=== PATIENT | female | born 1965 | race Caucasian/White ===

== ENCOUNTER 2019-12-21 18:22 | Emergency (ER) | payer OTHER ==
[2019-12-21 18:45] VITALS: BP 155/96; BMI 27.8
[2019-12-21] MEDS ORDERED: hydrOXYzine PAMOATE 50 MG CAPSULE (FP) PO ONE (19:35)
[2019-12-21] MEDS ORDERED: hydrOXYzine PAMOATE 50 MG CAPSULE (FP) ONE (19:37)
--- NOTE | 2019-12-21 19:41 | PDOC ---
History of Present Illness - General Chief Complaint: Sore Throat Stated Complaint: SOB/SORE THROAT Time Seen by Provider: 12/21/19 19:07 History Source: Patient Exam Limitations: No Limitations - History of Present Illness Initial Comments: 12/21/19 19:37 HISTORY OF PRESENT ILLNESS: 54-year-old woman with past medical history of anxiety, major depressive disorder post traumatic stress disorder who presents emergency department for evaluation of throat irritation after smelling beltre poison. Patient reports she smelled the beltre poison felt it was on her hands and instantly paralleled her hands but began to feel some sort of irritation in her throat after eating. Patient is concerned that she has ingested a toxic amount of beltre poison. Patient reports she felt nauseous but has not vomited and feels that her breathing is a little bit heavier. She denies fevers, chills, shortness of breath, abdominal pain, vomiting. No recent travel or sick contacts. PAST MEDICAL HISTORY: See HPI SURGICAL HISTORY: Denies ALLERGIES: Codeine REVIEW OF SYSTEMS General/Constitutional: Denies fever or chills. Denies weakness, weight change. HEENT: See HPI Cardiovascular: Denies chest pain or shortness of breath. Respiratory: Denies cough, wheezing, or hemoptysis. Gastrointestinal: Denies nausea, vomiting, diarrhea or constipation. Denies rectal bleeding. Genitourinary: Denies dysuria, frequency, or change in urination. Musculoskeletal: Denies joint or muscle swelling or pain. Denies neck or back pain. Skin and breasts: Denies rash or easy bruising. Neurologic: Denies headache, vertigo, loss of consciousness, or loss of sensation. Psychiatric: Denies depression or anxiety. Endocrine: Denies increased thirst. Denies abnormal weight change. Hematologic/Lymphatic: Denies anemia, easy bleeding, or history of blood clots. Allergic/Immunologic: Denies hives or skin allergy. Denies latex allergy. PHYSICAL EXAM General Appearance: Well-appearing, appropriately dressed. No apparent distress, no intoxication. HEENT: EOMI, PERRLA, normal ENT inspection, normal voice, TMs normal, pharynx normal. No conjunctival pallor. No photophobia, scleral icterus. Neck: Supple. Trachea midline. No tenderness, rigidity, carotid bruit, stridor, lymphadenopathy, or thyromegaly. Respiratory/Chest: Lungs CTAB. No shortness of breath, chest tenderness, respiratory distress, accessory muscle use. No crackles, rales, rhonchi, stridor, wheezing, dullness Cardiovascular: RRR. S1, S2. No JVD, murmur, bradycardia, tachycardia. Vascular Pulses: Dorsalis-Pedis (R): 2+, Dorsalis-Pedis (L): 2+ Gastrointestinal/Abdominal: Normal bowel sounds. Abdomen soft, non-distended. No tenderness or rebound tenderness. No organomegaly, pulsatile mass, guarding, hernia, hepatomegaly, splenomegaly. Neurologic: sheet roller operator II-XII intact. Fully oriented, alert. Appropriate mood/affect. Motor strength 5/5. No appreciable EOM palsy, facial droop or sensory deficit. Past History - Medical History Allergies/Adverse Reactions: Allergies Allergy/AdvReac Type Severity Reaction Status Date / Time codeine Allergy Verified 12/21/19 18:40 Home Medications: Ambulatory Orders Clonazepam 0.125 mg PO DAILY PRN MDD anxiety 12/21/19 COPD: No - Reproductive History Is Patient Now?: No - Psycho-Social/Smoking History Smoking History: Never smoked - Substance Abuse Hx (Audit-C & DAST Scrn) How often the patient has a drink containing alcohol: Never Score: In Men: 4 or > Positive; In Women: 3 or > Positive: 0 Screen Result (Pos requires Nsg. Audit-10AR): Negative In the last yr the pt used illegal drug/Rx for NonMed reason: No Score: Yes response is considered Positive: 0 Screen Result (Positive result requires Nsg. DAST-10): Negative *Physical Exam - Vital Signs Last Vital Signs Temp Pulse Resp BP Pulse Ox 155/96 99 12/21/19 18:42 12/21/19 18:42 Medical Decision Making - Medical Decision Making 12/21/19 19:40 A/P: 54-year-old woman with encounter for concerned that she accidentally ingested beltre poison Physical exam is unremarkable Given patient's history this is likely an acute exacerbation of her anxiety. Hydroxyzine 50 mg orally now Reassess 12/21/19 20:22 Patient reports she has complete resolution of symptoms after receiving hydroxyzine. Patient has been instructed to follow-up with her psychiatrist for continued evaluation and potential change in dosage of her Zoloft or additional medication to help with breakthrough anxiety. I discussed the physical exam findings, ancillary test results and final diagnoses with the patient. I answered all of the patient's questions. The patient was satisfied with the care received and felt comfortable with the discharge plan and treatment plan. The patient will call their primary care physician within 24 hours to arrange follow-up and will return to the Emergency Department with any new, persistent or worsening symptoms. Portions of this note have been documented using voice recognition software. As a result, errors may occur in the apparel fashion designer process. Effort has been made to correct all grammatical and apparel fashion designer error, but some may have been missed which may produce sporadic inaccurate apparel fashion designer or nonsensical phrases. Discharge - Discharge Information Problems reviewed: Yes Clinical Impression/Diagnosis: Anxiety Condition: Stable Disposition: HOME - Admission No - Follow up/Referral Referrals: Vikas Claudio MD [Primary Care Provider] - - Patient Discharge Instructions Additional Instructions: It is important that you follow-up with your doctor for reevaluation of your medications and potential addition of medications for breakthrough treatment. Return to the emergency department for any new or worsening symptoms. Thank you very much for choosing us to provide your emergent healthcare needs. - Post Discharge Activity
== END 2019-12-21 20:30 | disposition home or self-care (01) ==
LOC: JERFT 18:22
DX: F41.9 Anxiety disorder, unspecified (principal)
CPT/HCPCS: 99283-25

== ENCOUNTER 2021-04-29 04:00 | Emergency (ER) | payer OTHER ==
[2021-04-29 06:22] LABS: BASO % 0.5 % (0-2.0); EOS % 2.1 % (0-4.5); HEMATOCRIT 41.9 % (32.4-45.2); MCH 29.2 pg (25.7-33.7); MCHC 33.4 g/dl (32.0-36.0); MEAN CELL VOLUME 87.5 fl (80-96); MONO % 9.5 % (3.8-10.2); NEUT % 68.9 % (42.8-82.8); PLATELET COUNT 186 10^3/uL (134-434); RBC 4.79 M/mm3 (3.60-5.2); RDW 13.5 % (11.6-15.6); WHITE BLOOD COUNT 5.1 K/mm3 (4.0-10.0)
[2021-04-29 06:26] LABS: CHLORIDE 108 mmol/L (98-107); SODIUM 142 mmol/L (136-145)
[2021-04-29 06:28] LABS: CALCIUM 9.2 mg/dL (8.5-10.1)
[2021-04-29 06:29] LABS: ALBUMIN 3.8 g/dl (3.4-5.0); ANION GAP 4 MMOL/L (8-16); BLOOD UREA NITROGEN 15.9 mg/dL (7-18); CO2 30 mmol/L (21-32); GLUCOSE,RANDOM 122 mg/dL (74-106)
[2021-04-29 06:31] LABS: INR 1.03 (0.83-1.09); PROTHROMBIN TIME (PATIENT) 11.5 SEC (9.7-13.0)
[2021-04-29 06:32] LABS: CREATININE 0.8 mg/dL (0.55-1.3); SGOT/AST 13 U/L (15-37); SGPT/ALT 14 U/L (13-61)
[2021-04-29 06:34] LABS: ACTIVATED PTT 26.4 SECONDS (25.2-36.5); BILIRUBIN,TOTAL 0.4 mg/dL (0.2-1)
[2021-04-29 06:35] LABS: ALK PHOS 84 U/L (45-117)
[2021-04-29 06:43] VITALS: TEMP 98.6
[2021-04-29 10:07] VITALS: BP 126/80; PULSE 87
== END 2021-04-29 10:08 | disposition home or self-care (01) ==
LOC: JER 04:00
DX: R07.9 Chest pain, unspecified (principal)
CPT/HCPCS: 36415; 71045-TC-FY; 80053; 82550; 84484; 85025; 85379; 85610; 85730; 93005; 93010; 99285-25; C9803; U0003; U0005

== ENCOUNTER 2021-07-26 15:44 | Observation (INO) | payer OTHER ==
[2021-07-26 15:57] VITALS: BMI 25.7
[2021-07-26] MEDS ORDERED: ASPIRIN 81 MG CHEWABLE TABLETS PO ONE (17:58)
[2021-07-26] MEDS ORDERED: ASPIRIN 81 MG CHEWABLE TABLETS ONE (18:01)
[2021-07-26] MEDS ORDERED: ACETAMINOPHEN 325 MG TABLET (FP) PO PRN (18:06)
[2021-07-26 19:03] LABS: BASO % 0.4 % (0-2.0); HEMATOCRIT 41.7 % (32.4-45.2); HEMOGLOBIN 13.9 GM/dL (10.7-15.3); LYMPH % 17.8 % (8-40); MCH 29.1 pg (25.7-33.7); MCHC 33.4 g/dl (32.0-36.0); MEAN CELL VOLUME 87.1 fl (80-96); MEAN PLT VOLUME 8.7 fl (7.5-11.1); MONO % 8.4 % (3.8-10.2); NEUT % 72.4 % (42.8-82.8); PLATELET COUNT 192 10^3/uL (134-434); RBC 4.79 M/mm3 (3.60-5.2); RDW 14.6 % (11.6-15.6); WHITE BLOOD COUNT 6.3 K/mm3 (4.0-10.0)
[2021-07-26 19:11] LABS: INR 3.97 (0.83-1.09); PROTHROMBIN TIME (PATIENT) 46.3 SEC (9.7-13.0)
[2021-07-26 19:14] LABS: ACTIVATED PTT 33.9 SECONDS (25.2-36.5)
[2021-07-26 19:26] LABS: BLOOD UREA NITROGEN 13.6 mg/dL (7-18)
[2021-07-26 19:29] LABS: CREATININE 0.8 mg/dL (0.55-1.3)
[2021-07-26 19:31] LABS: BILIRUBIN,TOTAL 0.4 mg/dL (0.2-1); TOT PROT 7.2 g/dl (6.4-8.2)
[2021-07-27 07:37] LABS: BASO % 0.7 % (0-2.0); EOS % 3.8 % (0-4.5); HEMATOCRIT 40.3 % (32.4-45.2); HEMOGLOBIN 13.4 GM/dL (10.7-15.3); LYMPH % 33.7 % (8-40); MCH 28.9 pg (25.7-33.7); MCHC 33.2 g/dl (32.0-36.0); MEAN CELL VOLUME 87.2 fl (80-96); MEAN PLT VOLUME 9.1 fl (7.5-11.1); MONO % 12.1 % (3.8-10.2); NEUT % 49.7 % (42.8-82.8); PLATELET COUNT 177 10^3/uL (134-434); RBC 4.62 M/mm3 (3.60-5.2); RDW 14.7 % (11.6-15.6)
[2021-07-27 07:58] LABS: ALBUMIN 3.5 g/dl (3.4-5.0); BLOOD UREA NITROGEN 13.2 mg/dL (7-18)
[2021-07-27 08:01] LABS: CREATININE 0.8 mg/dL (0.55-1.3)
[2021-07-27 08:02] LABS: BILIRUBIN,TOTAL 0.6 mg/dL (0.2-1); TOT PROT 6.4 g/dl (6.4-8.2)
[2021-07-27 14:05] VITALS: TEMP 98.6
[2021-07-27 17:03] VITALS: BP 105/57; PULSE 85
== END 2021-07-27 18:40 | disposition home or self-care (01) ==
LOC: JER 15:44 → JERBED 21:16
PROVIDERS: ADMIT Internal Medicine; ATTEND Internal Medicine
DX: R07.9 Chest pain, unspecified (principal); Z88.6 Allergy status to analgesic agent; F32.9 Major depressive disorder, single episode, unspecified; I10 Essential (primary) hypertension; Z20.822 Contact with and (suspected) exposure to COVID-19; R94.31 Abnormal electrocardiogram [ECG] [EKG]; G89.29 Other chronic pain; F41.9 Anxiety disorder, unspecified
CPT/HCPCS: 36415; 71045-TC-FY; 78452-TC; 80053; 80061; 84443; 84484; 85025; 85610; 85730; 93005; 93010; 93017; 93306-TC; 99285-25; A9502; C9803; G0378; U0003; U0005

== ENCOUNTER 2021-09-25 10:00 | Emergency (ER) | payer OTHER ==
[2021-09-25 10:20] VITALS: BP 117/84; PULSE 113; TEMP 98; BMI 24.0
[2021-09-25] MEDS ORDERED: FAMOTIDINE 20 MG/50 ML IVPB 20 MG/50 ML MG IVPB ONE (11:02)
[2021-09-25] MEDS ORDERED: FAMOTIDINE 10 MG/ML VIAL IVPB ONE (11:24)
[2021-09-25 11:50] LABS: BASO % 0.7 % (0-2.0); EOS % 1.3 % (0-4.5); HEMATOCRIT 46.6 % (32.4-45.2); HEMOGLOBIN 15.6 GM/dL (10.7-15.3); LYMPH % 19.8 % (8-40); MCH 29.1 pg (25.7-33.7); MCHC 33.4 g/dl (32.0-36.0); MEAN CELL VOLUME 87.2 fl (80-96); MEAN PLT VOLUME 8.7 fl (7.5-11.1); MONO % 8.7 % (3.8-10.2); NEUT % 69.5 % (42.8-82.8); PLATELET COUNT 192 10^3/uL (134-434); RBC 5.35 M/mm3 (3.60-5.2); RDW 13.7 % (11.6-15.6); WHITE BLOOD COUNT 4.5 K/mm3 (4.0-10.0)
[2021-09-25 12:10] LABS: BLOOD UREA NITROGEN 13.2 mg/dL (7-18)
[2021-09-25 12:14] LABS: CREATININE 0.8 mg/dL (0.55-1.3)
[2021-09-25 12:15] LABS: BILIRUBIN,TOTAL 0.8 mg/dL (0.2-1); TOT PROT 7.6 g/dl (6.4-8.2)
[2021-09-25 12:59] LABS: EPI CELLS 20 /uL (0-25.1); HYALINE CASTS 3 /uL (0-3.1); URINE APPEARANCE CLEAR; URINE BACTERIA 673 /uL (0-1359); URINE BILIRUBIN NEGATIVE (NEGATIVE); URINE COLOR YELLOW; URINE GLUCOSE (UA) NEGATIVE (NEGATIVE); URINE KETONE TRACE (NEGATIVE); URINE LEUK ESTERASE 3+ (NEGATIVE); URINE NITRITE NEGATIVE (NEGATIVE); URINE PROTEIN NEGATIVE (NEGATIVE); URINE UROBILINOGEN 0.2 mg/dL (0.2-1.0); URINE WBC 143 /uL (0-25.8)
[2021-09-25 13:44] LABS: URINE RBC 27.4 /uL (0-23.9)
== END 2021-09-25 14:40 | disposition home or self-care (01) ==
LOC: JER 10:00
PROC: 3E033GC Introduction of Other Therapeutic Substance into Peripheral Vein, Percutaneous Approach (ICD-10-PCS; principal; 2021-09-25)
DX: R07.9 Chest pain, unspecified (principal)
CPT/HCPCS: 36415; 71046-TC-FY; 80053; 81003; 83690; 84484; 85025; 85379; 93005; 93010; 96372; 99285-25

== ENCOUNTER 2021-09-29 01:42 | Emergency (ER) | payer OTHER ==
[2021-09-29 02:29] VITALS: BMI 24.0
[2021-09-29] MEDS ORDERED: SODIUM CHLORIDE 0.9% 500 ML INFUS.BAG IV ONE (03:15)
[2021-09-29] MEDS ORDERED: CEPHALEXIN MONOHYDRATE 500 MG CAPSULE (UD) PO ONE (03:15)
[2021-09-29] MEDS ORDERED: FAMOTIDINE 20 MG/50 ML IVPB 20 MG/50 ML MG IVPB ONE (03:15)
[2021-09-29] MEDS ORDERED: ACETAMINOPHEN 500 MG TABLET (FP) PO ONE (03:15)
[2021-09-29] MEDS ORDERED: MAG HYDROX/AL HYDROX/SIMETH 30 ML UNIT-DOSE CUP PO ONE (03:15)
[2021-09-29] MEDS ORDERED: CEPHALEXIN MONOHYDRATE 500 MG CAPSULE (UD) ONE (03:35)
[2021-09-29] MEDS ORDERED: ACETAMINOPHEN 325 MG TABLET (FP) ONE (03:35)
[2021-09-29] MEDS ORDERED: MAG HYDROX/AL HYDROX/SIMETH 30 ML UNIT-DOSE CUP ONE ×2 (03:36→03:51)
[2021-09-29] MEDS ORDERED: ACETAMINOPHEN 1000 MG/100 ML BAG IVPB ONE (03:47)
[2021-09-29] MEDS ORDERED: CEFTRIAXONE 1 GM in DEXTROSE 5%-WATER - 100 ML IVPB ONE (03:47)
[2021-09-29] MEDS ORDERED: CEFTRIAXONE 1 GM/50 ML BAG ONE (03:49)
[2021-09-29] MEDS ORDERED: ACETAMINOPHEN INJECTION 100 ML IVPB ONE (03:49)
[2021-09-29 04:25] LABS: BASO % 0.6 % (0-2.0); HEMOGLOBIN 14.1 GM/dL (10.7-15.3); LYMPH % 16.2 % (8-40); MCHC 33.6 g/dl (32.0-36.0); MEAN CELL VOLUME 86.5 fl (80-96); MEAN PLT VOLUME 9.1 fl (7.5-11.1); MONO % 10.1 % (3.8-10.2); NEUT % 71.1 % (42.8-82.8); PLATELET COUNT 189 10^3/uL (134-434); RBC 4.85 M/mm3 (3.60-5.2); RDW 13.9 % (11.6-15.6); WHITE BLOOD COUNT 6.3 K/mm3 (4.0-10.0)
[2021-09-29 04:46] LABS: BLOOD UREA NITROGEN 17.4 mg/dL (7-18); CALCIUM 9.1 mg/dL (8.5-10.1)
[2021-09-29 04:48] LABS: ALBUMIN 3.7 g/dl (3.4-5.0)
[2021-09-29 04:49] LABS: CREATININE 0.9 mg/dL (0.55-1.3)
[2021-09-29 04:51] LABS: BILIRUBIN,TOTAL 0.3 mg/dL (0.2-1); TOT PROT 6.8 g/dl (6.4-8.2)
[2021-09-29 07:01] VITALS: BP 129/76; PULSE 83; TEMP 98.6
== END 2021-09-29 07:01 | disposition home or self-care (01) ==
LOC: JER 01:42
PROC: 3E033NZ Introduction of Analgesics, Hypnotics, Sedatives into Peripheral Vein, Percutaneous Approach (ICD-10-PCS; principal; 2021-09-29)
PROC: 3E03329 Introduction of Other Anti-infective into Peripheral Vein, Percutaneous Approach (ICD-10-PCS; 2021-09-29)
PROC: 3E033GC Introduction of Other Therapeutic Substance into Peripheral Vein, Percutaneous Approach (ICD-10-PCS; 2021-09-29)
DX: R00.2 Palpitations (principal); N30.00 Acute cystitis without hematuria
CPT/HCPCS: 36415; 71046-TC-FY; 80053; 83690; 84443; 84484; 85025; 93005; 93010; 96365; 96367; 96375; 99285-25

== ENCOUNTER 2021-10-25 18:54 | Emergency (ER) | payer OTHER ==
[2021-10-25 19:06] VITALS: BP 146/83; PULSE 97; TEMP 98; BMI 24.0
[2021-10-25] MEDS ORDERED: SODIUM PHOSPHATE/NA BIPHOS 133 ML ENEMA PR ONE (23:25)
[2021-10-25] MEDS ORDERED: MAGNESIUM CITRATE 300 ML BOTTLE PO ONE (23:32)
[2021-10-25] MEDS ORDERED: MAGNESIUM CITRATE 300 ML BOTTLE ONE (23:40)
== END 2021-10-26 01:03 | disposition home or self-care (01) ==
LOC: JER 18:54
DX: K59.00 Constipation, unspecified (principal)
CPT/HCPCS: 74019-TC-FY; 99283-25

== ENCOUNTER 2021-11-14 22:37 | Emergency (ER) | payer OTHER ==
[2021-11-14 23:14] VITALS: BP 148/93; PULSE 90; TEMP 97.9; BMI 24.0
[2021-11-15 00:38] LABS: EPI CELLS 25 /uL (0-25.1); HYALINE CASTS 1 /uL (0-3.1); URINE APPEARANCE CLEAR; URINE BACTERIA 123 /uL (0-1359); URINE BILIRUBIN NEGATIVE (NEGATIVE); URINE COLOR YELLOW; URINE GLUCOSE (UA) NEGATIVE (NEGATIVE); URINE KETONE 1+ (NEGATIVE); URINE LEUK ESTERASE 2+ (NEGATIVE); URINE NITRITE NEGATIVE (NEGATIVE); URINE PROTEIN NEGATIVE (NEGATIVE); URINE RBC 20 /uL (0-23.9); URINE UROBILINOGEN 0.2 mg/dL (0.2-1.0); URINE WBC 93 /uL (0-25.8)
[2021-11-15] MEDS ORDERED: CEPHALEXIN MONOHYDRATE 500 MG CAPSULE (UD) PO ONE (01:17)
[2021-11-15] MEDS ORDERED: CEPHALEXIN MONOHYDRATE 500 MG CAPSULE (UD) ONE (01:20)
== END 2021-11-15 01:49 | disposition home or self-care (01) ==
LOC: JER 22:37
DX: N39.0 Urinary tract infection, site not specified (principal)
CPT/HCPCS: 81003; 87086; 99283-25

== ENCOUNTER 2021-12-02 23:22 | Observation (INO) | payer OTHER ==
[2021-12-03 00:02] VITALS: BMI 24.0
[2021-12-03 01:42] LABS: BASO % 0.6 % (0-2.0); EOS % 1.1 % (0-4.5); HEMATOCRIT 42.5 % (32.4-45.2); HEMOGLOBIN 13.9 GM/dL (10.7-15.3); LYMPH % 15.5 % (8-40); MCH 28.5 pg (25.7-33.7); MCHC 32.7 g/dl (32.0-36.0); MEAN CELL VOLUME 87.2 fl (80-96); MONO % 8.2 % (3.8-10.2); NEUT % 74.6 % (42.8-82.8); PLATELET COUNT 205 10^3/uL (134-434); RBC 4.87 M/mm3 (3.60-5.2); RDW 13.8 % (11.6-15.6); WHITE BLOOD COUNT 7.1 K/mm3 (4.0-10.0)
[2021-12-03 01:48] LABS: INR 0.95 (0.83-1.09); PROTHROMBIN TIME (PATIENT) 10.9 SEC (9.7-13.0)
[2021-12-03 01:51] LABS: ACTIVATED PTT 33.3 SECONDS (25.2-36.5)
[2021-12-03 02:00] LABS: ALBUMIN 3.8 g/dl (3.4-5.0); BLOOD UREA NITROGEN 15.6 mg/dL (7-18); CALCIUM 9.2 mg/dL (8.5-10.1)
[2021-12-03 02:04] LABS: CREATININE 0.9 mg/dL (0.55-1.3)
[2021-12-03 02:05] LABS: BILIRUBIN,TOTAL 0.4 mg/dL (0.2-1); TOT PROT 6.9 g/dl (6.4-8.2)
[2021-12-03] MEDS ORDERED: ASPIRIN 81 MG CHEWABLE TABLETS PO ONE (02:42)
[2021-12-03] MEDS ORDERED: ASPIRIN 81 MG CHEWABLE TABLETS ONE (03:02)
[2021-12-03] MEDS ORDERED: amLODIPine BESYLATE 5 MG TABLET (FP) PO ONE (04:20)
[2021-12-03] MEDS ORDERED: POLYETHYLENE GLYCOL (HEALTHYLAX) 3350 17 GM PACKET PO SCH (06:00)
[2021-12-03 08:14] LABS: BASO % 0.6 % (0-2.0); EOS % 2.3 % (0-4.5); HEMATOCRIT 41.3 % (32.4-45.2); HEMOGLOBIN 13.7 GM/dL (10.7-15.3); LYMPH % 28.4 % (8-40); MCH 28.7 pg (25.7-33.7); MCHC 33.1 g/dl (32.0-36.0); MEAN CELL VOLUME 86.5 fl (80-96); MONO % 10.6 % (3.8-10.2); NEUT % 58.1 % (42.8-82.8); PLATELET COUNT 202 10^3/uL (134-434); RBC 4.77 M/mm3 (3.60-5.2); WHITE BLOOD COUNT 4.8 K/mm3 (4.0-10.0)
[2021-12-03 08:23] LABS: ALBUMIN 3.5 g/dl (3.4-5.0); CALCIUM 9.2 mg/dL (8.5-10.1); MAGNESIUM 2.7 mg/dL (1.8-2.4)
[2021-12-03 08:24] LABS: BLOOD UREA NITROGEN 12.2 mg/dL (7-18)
[2021-12-03 08:26] LABS: CREATININE 0.8 mg/dL (0.55-1.3)
[2021-12-03 08:27] LABS: PHOSPHOROUS 3.3 mg/dL (2.5-4.9)
[2021-12-03 08:28] LABS: BILIRUBIN,TOTAL 0.5 mg/dL (0.2-1); TOT PROT 6.6 g/dl (6.4-8.2)
[2021-12-03] MEDS ORDERED: ENOXAPARIN NA (PORCINE) 40 MG/0.4 ML DISP.SYRIN SQ SCH (10:00)
[2021-12-03] MEDS ORDERED: amLODIPine BESYLATE 5 MG TABLET (FP) PO SCH (10:00)
[2021-12-03] MEDS ORDERED: ENOXAPARIN NA (PORCINE) 40 MG/0.4 ML DISP.SYRIN SQ ONE (10:06)
[2021-12-03] MEDS ORDERED: amLODIPine BESYLATE 5 MG TABLET (FP) ONE (10:06)
[2021-12-03 13:49] VITALS: BP 125/78; PULSE 81; RESP 16; TEMP 97.5
== END 2021-12-03 13:45 | disposition home or self-care (01) ==
LOC: JER 23:22 → JERBED 12-03 02:29
PROVIDERS: ADMIT Internal Medicine; ATTEND Internal Medicine
PROC: 3E023GC Introduction of Other Therapeutic Substance into Muscle, Percutaneous Approach (ICD-10-PCS; principal; 2021-12-03)
DX: R07.9 Chest pain, unspecified (principal); I10 Essential (primary) hypertension; M19.90 Unspecified osteoarthritis, unspecified site; M54.50 Low back pain, unspecified; F41.9 Anxiety disorder, unspecified; Z86.16 Personal history of COVID-19
CPT/HCPCS: 36415; 71046-TC-FY; 80053; 83735; 84100; 84484; 85025; 85610; 85730; 93005; 93010; 96372; 99285-25; C9803-CS; G0378; U0003; U0005

== ENCOUNTER 2022-01-17 01:57 | Emergency (ER) | payer OTHER ==
[2022-01-17 02:56] VITALS: TEMP 98.1; BMI 24.4
[2022-01-17] MEDS ORDERED: ACETAMINOPHEN 1000 MG/100 ML BAG IVPB ONE (04:02)
[2022-01-17] MEDS ORDERED: ACETAMINOPHEN INJECTION 100 ML IVPB ONE (04:10)
[2022-01-17 04:28] LABS: BASO % 0.6 % (0-2.0); EOS % 0.8 % (0-4.5); HEMATOCRIT 42.8 % (32.4-45.2); HEMOGLOBIN 14.3 GM/dL (10.7-15.3); LYMPH % 10.9 % (8-40); MCH 29.3 pg (25.7-33.7); MCHC 33.5 g/dl (32.0-36.0); MEAN CELL VOLUME 87.6 fl (80-96); MEAN PLT VOLUME 8.4 fl (7.5-11.1); NEUT % 78.7 % (42.8-82.8); PLATELET COUNT 200 10^3/uL (134-434); RBC 4.89 M/mm3 (3.60-5.2); RDW 14.1 % (11.6-15.6); WHITE BLOOD COUNT 8.8 K/mm3 (4.0-10.0)
[2022-01-17 04:48] LABS: CHLORIDE 106 mmol/L (98-107); SODIUM 139 mmol/L (136-145)
[2022-01-17 04:50] LABS: ALBUMIN 3.7 g/dl (3.4-5.0); BLOOD UREA NITROGEN 18.5 mg/dL (7-18); CALCIUM 9.1 mg/dL (8.5-10.1); CO2 31 mmol/L (21-32); GLUCOSE,RANDOM 106 mg/dL (74-106)
[2022-01-17 04:53] LABS: CREATININE 0.9 mg/dL (0.55-1.3); SGOT/AST 82 U/L (15-37)
[2022-01-17 04:55] LABS: BILIRUBIN,TOTAL 0.4 mg/dL (0.2-1); TOT PROT 7.6 g/dl (6.4-8.2)
[2022-01-17 04:56] LABS: ALK PHOS 97 U/L (45-117)
[2022-01-17 05:56] LABS: ANION GAP 2 MMOL/L (8-16); SGPT/ALT 20 U/L (13-61)
[2022-01-17 07:06] VITALS: BP 128/80; PULSE 68; RESP 16
[2022-01-17 07:15] LABS: CALCIUM 8.9 mg/dL (8.5-10.1)
[2022-01-17 07:16] LABS: BLOOD UREA NITROGEN 17.4 mg/dL (7-18)
[2022-01-17 07:19] LABS: CREATININE 0.8 mg/dL (0.55-1.3)
== END 2022-01-17 07:45 | disposition home or self-care (01) ==
LOC: JER 01:57
DX: R07.9 Chest pain, unspecified (principal)
CPT/HCPCS: 0241U-QW; 36415; 71046-TC-FY; 80048; 80053; 84484; 85025; 93005; 93010; 99285-25